=== PATIENT | female | born 1990 | race Caucasian/White ===

== ENCOUNTER 2020-05-02 22:46 | Inpatient (IN) | payer OTHER, SELFPAY ==
[~2020-05-02] VITALS: Ht 149.9 cm; Wt 77.1 kg
[2020-05-02] MEDS ORDERED: ONDANSETRON 4 MG/2 ML VIAL IVP PRN (23:20)
[2020-05-02] MEDS ORDERED: MORPHINE SULFATE 5 MG/ML VIAL IVP PRN (23:20)
[2020-05-02] MEDS ORDERED: DOCO200C2 PO (23:28)
[2020-05-02 23:46] LABS: BASOPHILS % (AUTO) 0.2 % (0.0-2.0); EOSINOPHILS % (AUTO) 0.4 % (0.0-4.0); HEMATOCRIT 37.2 % (36-48); HEMOGLOBIN 12.5 g/dL (12.0-16.0); LYMPHOCYTES # (AUTO) 2.1 K/uL (2.5-16.5); LYMPHOCYTES % (AUTO) 24.7 % (20.5-51.1); MEAN CORPUSCULAR HEMOGLOBIN 32 pg (27-31); MEAN CORPUSCULAR HGB CONC 34 g/dL (33-37); MEAN CORPUSCULAR VOLUME 96.4 fL (80-94); MONOCYTES # (AUTO) 0.7 K/uL (0.8-1.0); MONOCYTES % (AUTO) 8.4 % (1.7-9.3); NEUTROPHILS # (AUTO) 5.6 K/uL (1.8-7.7); NEUTROPHILS % (AUTO) 66.3 % (42.2-75.2); PLATELET COUNT (AUTO) 227 K/uL (140-450); RED BLOOD CELL COUNT(AUTO) 3.86 MIL/uL (4.20-5.40); RED CELL DISTRIBUTION WIDTH 15.3 % (11.6-13.7); WHITE BLOOD COUNT (AUTO) 8.5 K/uL (4.8-10.8)
[2020-05-02] MEDS: LACTATED RINGERS 1,000 ML IV SCH (23:48)
[2020-05-03 00:07] LABS: APPEARANCE,URINE CLEAR (CLEAR); BILIRUBIN,URINE NEGATIVE (NEGATIVE); BLOOD, URINE NEGATIVE (NEGATIVE); COLOR,URINE YELLOW (YELLOW); LEUKOCYTE ESTERASE ,URINE NEGATIVE (NEGATIVE); NITRITE, URINE NEGATIVE (NEGATIVE); UGLUCOSE NEGATIVE (NEGATIVE)
[2020-05-03 00:14] LABS: ALBUMIN 2.9 g/dL (3.4-5.0); CARBON DIOXIDE 20.7 mmol/L (21-32); CREATININE 0.6 mg/dL (0.6-1.3); POTASSIUM 3.7 mmol/L (3.5-5.1); TOTAL BILIRUBIN 0.4 mg/dL (0.0-1.0)
[2020-05-03 00:26] VITALS: BP 124/74
[2020-05-03] MEDS: LACTATED RINGERS 1,000 ML IV SCH ×3 (04:00→23:55)
--- NOTE | 2020-05-03 07:55 | NUR ---
PATIENT HAS BEEN SCREENED AND CATEGORIZED LOW NUTRITION RISK. PATIENT WILL BE SEEN WITHIN 7 DAYS OF ADMISSION. 05/09/[address]
[2020-05-03] MEDS ORDERED: ROPIVACAINE 0.2%/NS PREMIX 100 ML EPI SCH (11:57)
[2020-05-03] MEDS ORDERED: OXYTOCIN 20 UNITS/LR PREMIX 1,000 ML IV ONE (13:27)
[2020-05-03] MEDS: OXYTOCIN 20 UNITS in LACTATED RINGERS 1,000 ML IV SCH (13:39)
[2020-05-04] MEDS: LACTATED RINGERS 1,000 ML IV SCH ×2 (08:06→16:24)
[2020-05-04] MEDS ORDERED: OXYTOCIN 20 UNITS/LR PREMIX 1,000 ML IV ONE (16:53)
[2020-05-04] MEDS: OXYTOCIN 20 UNITS in LACTATED RINGERS 1,000 ML IV SCH (17:00)
[2020-05-05] MEDS ORDERED: CITRIC ACID/SODIUM CITRATE 30 ML UDC PO SCH (00:45)
[2020-05-05] MEDS ORDERED: MEASLES, MUMPS, AND RUBELLA 1 VIAL SQVAC PRN (00:55)
[2020-05-05] MEDS ORDERED: METHYLERGONOVINE 0.2 MG/ML AMP IM PRN (00:55)
[2020-05-05] MEDS ORDERED: ceFAZolin 1,000 MG VIAL ONE (00:58)
[2020-05-05] MEDS ORDERED: oxyCODONE/APAP 5/325 MG 1 TAB TAB PO PRN (01:00)
[2020-05-05] MEDS ORDERED: OXYTOCIN 20 UNITS/LR PREMIX 1,000 ML IV ONE ×3 (01:16→23:04)
[2020-05-05] MEDS ORDERED: diphenhydrAMINE 50 MG/ML VIAL ONE (01:16)
[2020-05-05] MEDS ORDERED: fentaNYL citrate 0.05 MG/ML VIAL ONE ×2 (01:21→01:27)
[2020-05-05] MEDS ORDERED: MORPHINE PRES FREE 10 MG/10 ML AMP IV ONE ×2 (01:21→01:27)
[2020-05-05] MEDS ORDERED: ONDANSETRON 4 MG/2 ML VIAL ONE (01:27)
[2020-05-05] MEDS ORDERED: LIDOCAINE 2% 100 MG/5 ML SYR IVP ONE (01:27)
[2020-05-05] MEDS ORDERED: PROPOFOL 200 MG/20 ML VIAL IV ONE (01:27)
[2020-05-05] MEDS ORDERED: METOCLOPRAMIDE 10 MG/2 ML INJ VIAL ONE (01:27)
[2020-05-05] MEDS ORDERED: DEXAMETHASONE 4 MG/ML VIAL ONE (01:27)
[2020-05-05] MEDS ORDERED: fentaNYL citrate 0.05 MG/ML VIAL IVP PRN (02:15)
[2020-05-05] MEDS ORDERED: OXYTOCIN 20 UNITS in LACTATED RINGERS 1,000 ML IV SCH (02:15)
[2020-05-05] MEDS ORDERED: diphenhydrAMINE 50 MG/ML VIAL IVP PRN ×2 (02:15→02:25)
[2020-05-05] MEDS ORDERED: ONDANSETRON 4 MG/2 ML VIAL IVP PRN ×2 (02:15→02:25)
[2020-05-05] MEDS ORDERED: MEPERIDINE 25 MG/ML SYR IVP PRN (02:15)
[2020-05-05] MEDS ORDERED: NALOXONE 0.4 MG/ML VIAL IVP PRN (02:25)
[2020-05-05] MEDS: OXYTOCIN 20 UNITS in LACTATED RINGERS 1,000 ML IV SCH ×3 (03:10→23:14)
[2020-05-05] MEDS: KETOROLAC 30 MG/ML VIAL IM/IVP SCH ×3 (06:07→18:07)
[2020-05-05] MEDS: bisacodyL 10 MG SUPP RC SCH (08:44)
[2020-05-05] MEDS ORDERED: PROMETHAZINE 25 MG/ML VIAL IVP PRN (18:45)
[2020-05-06] MEDS: IBUPROFEN 600 MG TAB PO SCH ×5 (00:03→23:48)
[2020-05-06 06:56] LABS: BASOPHILS % (AUTO) 0.2 % (0.0-2.0); EOSINOPHILS # (AUTO) 0.1 K/uL (0-0.4); HEMOGLOBIN 9.1 g/dL (12.0-16.0); LYMPHOCYTES # (AUTO) 1.7 K/uL (2.5-16.5); LYMPHOCYTES % (AUTO) 17.1 % (20.5-51.1); MEAN CORPUSCULAR HEMOGLOBIN 33 pg (27-31); MEAN CORPUSCULAR HGB CONC 34 g/dL (33-37); MEAN CORPUSCULAR VOLUME 97.4 fL (80-94); MONOCYTES # (AUTO) 0.7 K/uL (0.8-1.0); MONOCYTES % (AUTO) 6.7 % (1.7-9.3); NEUTROPHILS # (AUTO) 7.4 K/uL (1.8-7.7); PLATELET COUNT (AUTO) 185 K/uL (140-450); RED BLOOD CELL COUNT(AUTO) 2.77 MIL/uL (4.20-5.40); RED CELL DISTRIBUTION WIDTH 15.8 % (11.6-13.7); WHITE BLOOD COUNT (AUTO) 9.9 K/uL (4.8-10.8)
[2020-05-06] MEDS: oxyCODONE/APAP 5/325 MG 1 TAB TAB PO PRN ×2 (07:54→16:18)
[2020-05-06] MEDS: bisacodyL 10 MG SUPP RC SCH (09:00)
[2020-05-07] MEDS: IBUPROFEN 600 MG TAB PO SCH ×2 (05:57→11:56)
[2020-05-07] MEDS ORDERED: CYCLOBENZAPRINE 10 MG TAB PO SCH (09:00)
[2020-05-07] MEDS ORDERED: CAMERA MC ONE (15:34)
== END 2020-05-07 16:20 | disposition home or self-care (01) | DRG 787 ==
LOC: MLD 22:46 → MFCC 05-05 03:20
PROVIDERS: ADMIT Obstetrics & Gynecology; ATTEND Obstetrics & Gynecology
PROC: 10907ZC Drainage of Amniotic Fluid, Therapeutic from Products of Conception, Via Natural or Artificial Opening (ICD-10-PCS; 2020-05-04)
PROC: 10D00Z1 Extraction of Products of Conception, Low, Open Approach (ICD-10-PCS; principal; 2020-05-05 01:00)
DX: O62.0 Primary inadequate contractions (principal); D62 Acute posthemorrhagic anemia; Z37.0 Single live birth; Z3A.39 39 weeks gestation of pregnancy; O90.81 Anemia of the puerperium; Z20.828 Contact with and (suspected) exposure to other viral communicable diseases
CPT/HCPCS: 36415; 51702; 76815; 76819; 80053; 81003; 85025; 86592; 86886; 86900; 86901; J0690; J1100; J1200; J1885; J2001; J2210; J2270; J2405; J2590; J2704; J2765; J2795; J3010; J7060; J7120